=== PATIENT | male | born 1935 | race Caucasian/White ===

== ENCOUNTER 2025-06-16 16:36 | Inpatient (IN) | payer MEDICARE ==
[~2025-06-16] VITALS: Ht 177.8 cm; Wt 67.1 kg
[2025-06-16 16:49] VITALS: O2SAT 97
[2025-06-16 18:53] LABS: BASOPHILS % 0.4 % (0.0-2.0); EOSINOPHILS % 0.9 % (0.0-5.0); HEMATOCRIT. 38.9 % (42.0-52.0); HEMOGLOBIN. 13.1 g/dL (14.0-18.0); LYMPHOCYTES % 23.2 % (20.0-50.0); MEAN PLATELET VOLUME 8.5 fl (7.4-10.4); MONOCYTES % 6.8 % (2.0-8.0); NEUTROPHILS % 68.7 % (40.0-76.0); PLATELET 162 x1000/uL (130-400); RED BLOOD CELL COUNT 3.79 mill/uL (4.7-6.1); RED CELL DISTRIBUTION WIDTH 15.2 % (11.6-14.6)
[2025-06-16 19:05] LABS: CREATININE 0.8 mg/dL (0.6-1.3); UREA NITROGEN BLOOD 9 mg/dL (9-23)
[2025-06-16] MEDS: ONDANSETRON HCL 4MG/2ML INJ IV ONE (19:05)
[2025-06-16] MEDS: ACETAMINOPHEN 1000MG/100ML 100 ML IV ONE (19:05)
[2025-06-16 19:07] LABS: ASPARTATE AMINOTRANSFERASE 23 IU/L (<34); BILIRUBIN DIRECT 0.4 mg/dL (<=3.0); BILIRUBIN TOTAL 1.1 mg/dL (0.1-1.0)
[2025-06-16 19:08] LABS: PROTEIN TOTAL 6.3 g/dL (6.0-8.3); TROPONIN I HIGH SENSITIVITY 1262 ng/L (3.0-53)
[2025-06-16 20:03] LABS: INR 1.3
[2025-06-16] MEDS: ASPIRIN 325MG TABLET PO ONE (20:15)
[2025-06-16] MEDS: ASPIRIN 81MG TABLET PO ONE (20:38)
[2025-06-16 21:18] LABS: TROPONIN I HIGH SENSITIVITY 3906 ng/L (3.0-53)
[2025-06-16 21:35] VITALS: BP 121/80; PULSE 81; RESP 22; TEMP 36.4; O2SAT 95
[2025-06-16 21:40] VITALS: BP 121/80; PULSE 81; RESP 22; TEMP 36.418
[2025-06-16] MEDS ORDERED: DILTIAZEM HCL 5MG/ML 5ML VIAL IV NR (22:45)
[2025-06-16] MEDS ORDERED: ACETAMINOPHEN 325MG TABLET PO PRN ×2 (23:30)
[2025-06-16] MEDS ORDERED: IPRATROPIUM/ALBUTEROL 0.5-3(2.5)MG/3ML NEB HHN PRN (23:30)
[2025-06-16] MEDS ORDERED: CLONIDINE 0.1MG TABLET PO PRN (23:30)
[2025-06-16] MEDS ORDERED: GUAIFENESIN 200MG/10ML SUGAR FREE UDC PO PRN (23:30)
[2025-06-16] MEDS ORDERED: DOCUSATE SODIUM 100MG CAPSULE PO PRN (23:30)
[2025-06-17] MEDS ORDERED: NITROGLYCERIN 0.4MG TABLET SL SL PRN
[2025-06-17 00:01] VITALS: BP 140/95; PULSE 85; RESP 20; TEMP 37; O2SAT 94
[2025-06-17] MEDS ORDERED: METF-907 PO (00:28)
[2025-06-17] MEDS ORDERED: EZETIMIBE PO (00:28)
[2025-06-17] MEDS ORDERED: APIX2.5T PO (00:28)
[2025-06-17] MEDS ORDERED: TAMSULOSIN PO (00:28)
[2025-06-17] MEDS ORDERED: NIAC-9 PO (00:28)
[2025-06-17] MEDS: ENOXAPARIN 80MG/0.8ML SYR SUBCUT SCH (00:35)
[2025-06-17] MEDS ORDERED: DEXTROSE 50% WATER 50ML SYRINGE IV PRN (00:45)
[2025-06-17 04:00] VITALS: BP 97/62; PULSE 69; RESP 15; TEMP 37.1; O2SAT 92
[2025-06-17] MEDS: BLOOD SUGAR DIAGNOSTIC STRIP TEST SCH (06:47)
[2025-06-17] MEDS: INSULIN LISPRO 100 UNITS/ML SUBCUT SCH (07:20)
[2025-06-17 08:00] VITALS: BP 127/84; PULSE 71; RESP 16; TEMP 36.3; O2SAT 92
[2025-06-17 08:42] LABS: *AMPHETAMINES SCREEN URINE NEGATIVE (NEGATIVE); *BARBITURATES SCREEN URINE NEGATIVE (NEGATIVE); *BENZODIAZEPINES SCREEN URINE NEGATIVE (NEGATIVE); *COCAINE SCREEN URINE NEGATIVE (NEGATIVE); CANNABINOID URINE SCREEN NEGATIVE (NEGATIVE); ECSTASY MDMA SCREEN URINE NEGATIVE (NEGATIVE); METHADONE URINE SCREEN NEGATIVE (NEGATIVE); OPIATES URINE SCREEN NEGATIVE (NEGATIVE); PHENCYCLIDINE URINE SCREEN NEGATIVE (NEGATIVE)
[2025-06-17 08:59] LABS: BASOPHILS % 0.6 % (0.0-2.0); EOSINOPHILS % 2.2 % (0.0-5.0); HEMATOCRIT. 37.1 % (42.0-52.0); HEMOGLOBIN. 12.2 g/dL (14.0-18.0); LYMPHOCYTES % 25.0 % (20.0-50.0); MEAN PLATELET VOLUME 8.6 fl (7.4-10.4); MONOCYTES % 7.7 % (2.0-8.0); NEUTROPHILS % 64.5 % (40.0-76.0); PLATELET 155 x1000/uL (130-400); RED BLOOD CELL COUNT 3.57 mill/uL (4.7-6.1); RED CELL DISTRIBUTION WIDTH 14.9 % (11.6-14.6)
[2025-06-17] MEDS ORDERED: HEPARIN 5000 UNITS/ML VIAL SUBCUT SCH (09:00)
[2025-06-17 09:10] LABS: CREATINE KINASE MB FRACTION 26.6 ng/mL (0.5-3.6)
[2025-06-17 09:11] LABS: CREATININE 0.9 mg/dL (0.6-1.3); TRIGLYCERIDE 39 mg/dL (0-150)
[2025-06-17 09:12] LABS: LDL CHOLESTEROL 59 mg/dL (5-100); UREA NITROGEN BLOOD 11 mg/dL (9-23)
[2025-06-17 09:17] LABS: TROPONIN I HIGH SENSITIVITY 6169.0 ng/L (3.0-53)
[2025-06-17] MEDS: PANTOPRAZOLE SODIUM 40 MG/VIAL IV SCH (09:33)
[2025-06-17 09:49] LABS: HEPATITIS C AB NON REACTIVE (Neg) (Negative)
[2025-06-17] MEDS: TAMSULOSIN HCL 0.4MG SR CAPSULE PO SCH (10:01)
[2025-06-17] MEDS: ASPIRIN 81MG EC TABLET PO SCH (10:01)
[2025-06-17 12:00] VITALS: BP 116/80; PULSE 75; RESP 24; TEMP 36.5; O2SAT 95
[2025-06-17 16:00] VITALS: BP 114/84; PULSE 78; RESP 14; TEMP 36.7; O2SAT 98
[2025-06-17 20:00] VITALS: BP 119/82; PULSE 79; RESP 19; TEMP 36.7; O2SAT 98
[2025-06-17] MEDS: ATORVASTATIN CALCIUM 40MG TABLET PO SCH (20:44)
[2025-06-17 22:31] LABS: CREATINE KINASE MB FRACTION 18.0 ng/mL (0.5-3.6)
[2025-06-17 22:32] LABS: CREATININE 0.9 mg/dL (0.6-1.3); TRIGLYCERIDE 51 mg/dL (0-150); UREA NITROGEN BLOOD 13 mg/dL (9-23)
[2025-06-17 22:33] LABS: LDL CHOLESTEROL 56 mg/dL (5-100)
[2025-06-17 22:37] LABS: T4 FREE 1.11 ng/dL (0.89-1.76)
[2025-06-17 22:39] LABS: TROPONIN I HIGH SENSITIVITY 3627 ng/L (3.0-53)
[2025-06-18] VITALS: BP 128/81; PULSE 72; RESP 20; TEMP 36.6; O2SAT 95
[2025-06-18 04:00] VITALS: BP 133/90; PULSE 97; RESP 20; TEMP 36.2; O2SAT 97
[2025-06-18] MEDS ORDERED: FURO-151 PO (05:16)
[2025-06-18 07:01] LABS: CREATINE KINASE MB FRACTION 11.9 ng/mL (0.5-3.6)
[2025-06-18 08:00] VITALS: BP 124/73; PULSE 87; RESP 25; TEMP 36.8; O2SAT 95
[2025-06-18 09:39] LABS: CREATININE 0.9 mg/dL (0.6-1.3)
[2025-06-18 09:40] LABS: UREA NITROGEN BLOOD 11 mg/dL (9-23)
[2025-06-18 12:00] VITALS: BP 125/60; PULSE 79; RESP 17; TEMP 36.8; O2SAT 99
[2025-06-18 13:40] LABS: PLATELET 149 x1000/uL (130-400); RED BLOOD CELL COUNT 3.43 mill/uL (4.7-6.1); RED CELL DISTRIBUTION WIDTH 15.8 % (11.6-14.6)
[2025-06-18] MEDS: FUROSEMIDE 40MG/4ML VIAL IVP SCH (14:38)
[2025-06-18] MEDS: MAGNESIUM/ALUMINUM HYDROXIDE/SIMETHICONE 30ML UDC PO PRN (15:21)
[2025-06-18] MEDS: NA PHOS,M-B/NA PHOS,DI-BA ENEMA 118ML PR PRN (15:42)
[2025-06-18 16:00] VITALS: BP 112/61; PULSE 79; RESP 19; TEMP 36.4; O2SAT 96
[2025-06-18 20:00] VITALS: BP 125/75; PULSE 65; RESP 17; TEMP 36.6; O2SAT 98
[2025-06-18 22:18] LABS: CREATINE KINASE MB FRACTION 8.8 ng/mL (0.5-3.6)
[2025-06-19] VITALS: BP 115/89; PULSE 84; RESP 20; TEMP 36.6; O2SAT 92
[2025-06-19 04:00] VITALS: BP 126/98; PULSE 81; RESP 25; TEMP 36.6; O2SAT 94
[2025-06-19 08:00] VITALS: BP 142/89; PULSE 75; RESP 20; TEMP 36.7; O2SAT 99
[2025-06-19 12:00] VITALS: BP 121/74; PULSE 76; RESP 23; TEMP 36.9; O2SAT 99
[2025-06-19 16:00] VITALS: BP 94/50; PULSE 84; RESP 1; TEMP 36.8; O2SAT 97
[2025-06-19 20:00] VITALS: BP 113/63; PULSE 77; RESP 26; TEMP 36.6; O2SAT 98
[2025-06-20] VITALS (8 sets, daily range): BP systolic 102–131; BP diastolic 55–92; PULSE 65–91; RESP 16–23; TEMP 36.2–36.8; O2SAT 96–98
[2025-06-20 06:59] LABS: PLATELET 142 x1000/uL (130-400); RED BLOOD CELL COUNT 3.51 mill/uL (4.7-6.1); RED CELL DISTRIBUTION WIDTH 14.8 % (11.6-14.6)
[2025-06-20 07:03] LABS: CREATININE 0.7 mg/dL (0.6-1.3); UREA NITROGEN BLOOD 11 mg/dL (9-23)
[2025-06-20] MEDS ORDERED: HEPARIN 1000 UNITS/ML 10ML ONE ×2 (10:01→11:36)
[2025-06-20] MEDS ORDERED: LIDOCAINE HCL 1% 20ML VIAL ONE (10:01)
[2025-06-20] MEDS ORDERED: VERAPAMIL HCL 2.5 MG/1 ML 2ML VIAL IV ONE (10:01)
[2025-06-20] MEDS ORDERED: IODIXANOL 320MG/ML 100 ML BOTTLE IV ONE ×2 (10:01→11:43)
[2025-06-20] MEDS ORDERED: FENTANYL CITRATE/PF 50MCG/ML 2ML VIAL ONE (10:18)
[2025-06-20] MEDS ORDERED: MIDAZOLAM HCL 2 MG/2 ML VIAL ONE (10:19)
[2025-06-20] MEDS ORDERED: ATROPINE SULFATE 1MG/10ML SYR IV PRN (12:30)
[2025-06-20] MEDS: SODIUM CHLORIDE 0.45% 1,000 ML IV SCH (13:38)
[2025-06-20] MEDS: ENOXAPARIN 60MG/0.6ML SYR SUBCUT SCH (22:33)
[2025-06-21] VITALS (15 sets, daily range): BP systolic 90–141; BP diastolic 46–98; PULSE 73–86; RESP 13–32; TEMP 36.4–37.2; O2SAT 87–100
[2025-06-21 06:23] LABS: BASOPHILS % 0.4 % (0.0-2.0); EOSINOPHILS % 0.3 % (0.0-5.0); HEMATOCRIT. 36.1 % (42.0-52.0); HEMOGLOBIN. 12.1 g/dL (14.0-18.0); LYMPHOCYTES % 15.4 % (20.0-50.0); MEAN PLATELET VOLUME 8.3 fl (7.4-10.4); MONOCYTES % 8.2 % (2.0-8.0); NEUTROPHILS % 75.7 % (40.0-76.0); PLATELET 141 x1000/uL (130-400); RED BLOOD CELL COUNT 3.51 mill/uL (4.7-6.1); RED CELL DISTRIBUTION WIDTH 14.9 % (11.6-14.6)
[2025-06-21 06:40] LABS: CREATININE 0.7 mg/dL (0.6-1.3); UREA NITROGEN BLOOD 10 mg/dL (9-23)
[2025-06-21] MEDS ORDERED: IODIXANOL 320 MG/ML 150ML BOTTLE IV ONE (11:00)
[2025-06-21] MEDS ORDERED: LIDOCAINE HCL 1% 20ML VIAL ONE ×2 (11:00→12:40)
[2025-06-21] MEDS ORDERED: HEPARIN 1000 UNITS/ML 10ML ONE ×2 (11:01→13:54)
[2025-06-21] MEDS ORDERED: VERAPAMIL HCL 2.5 MG/1 ML 2ML VIAL IV ONE ×2 (11:01→12:40)
[2025-06-21] MEDS ORDERED: MIDAZOLAM HCL 2 MG/2 ML VIAL ONE (12:42)
[2025-06-21] MEDS ORDERED: FENTANYL CITRATE/PF 50MCG/ML 2ML VIAL ONE (12:42)
[2025-06-21] MEDS ORDERED: CLOPIDOGREL 75MG TABLET ONE (12:42)
[2025-06-21] MEDS ORDERED: IODIXANOL 320MG/ML 100 ML BOTTLE IV ONE (13:31)
[2025-06-21] MEDS ORDERED: ASPIRIN 81MG TABLET ONE (14:12)
[2025-06-21] MEDS: SODIUM CHLORIDE 0.45% 1,000 ML IV SCH (15:30)
[2025-06-21] MEDS: ONDANSETRON HCL 4MG/2ML INJ IV PRN (16:16)
[2025-06-21] MEDS: ASPIRIN 81MG EC TABLET PO SCH (17:02)
[2025-06-21] MEDS ORDERED: IPRATROPIUM/ALBUTEROL 0.5-3(2.5)MG/3ML NEB HHN PRN (18:30)
[2025-06-22] VITALS (15 sets, daily range): BP systolic 86–127; BP diastolic 57–90; PULSE 71–93; RESP 15–33; TEMP 36.3–36.9; O2SAT 93–99
[2025-06-22 08:01] LABS: BASOPHILS % 0.3 % (0.0-2.0); EOSINOPHILS % 0.1 % (0.0-5.0); HEMATOCRIT. 39.5 % (42.0-52.0); HEMOGLOBIN. 13.0 g/dL (14.0-18.0); LYMPHOCYTES % 15.1 % (20.0-50.0); MEAN PLATELET VOLUME 9.2 fl (7.4-10.4); MONOCYTES % 8.6 % (2.0-8.0); NEUTROPHILS % 75.9 % (40.0-76.0); PLATELET 147 x1000/uL (130-400); RED BLOOD CELL COUNT 3.72 mill/uL (4.7-6.1); RED CELL DISTRIBUTION WIDTH 15.3 % (11.6-14.6)
[2025-06-22 08:22] LABS: CREATININE 0.7 mg/dL (0.6-1.3); UREA NITROGEN BLOOD 13 mg/dL (9-23)
[2025-06-22] MEDS: CLOPIDOGREL 75MG TABLET PO SCH (09:17)
[2025-06-22] MEDS: FUROSEMIDE 40MG/4ML VIAL ONE (11:31)
[2025-06-22] MEDS: FUROSEMIDE 40MG/4ML VIAL IVP NR (11:39)
[2025-06-22] MEDS ORDERED: APIX2.5T MT (12:47)
[2025-06-22] MEDS ORDERED: CLOP75TA33 MT (12:47)
[2025-06-22] MEDS ORDERED: LIP40 MT (12:57)
[2025-06-22] MEDS ORDERED: MIDODRINE HCL 5MG TABLET PO PRN (17:45)
[2025-06-23] VITALS: BP 103/85; PULSE 84; RESP 22; TEMP 36.9; O2SAT 96
[2025-06-23 04:00] VITALS: BP 116/88; PULSE 82; RESP 23; TEMP 36.8; O2SAT 94
[2025-06-23 08:00] VITALS: BP 120/71; PULSE 87; RESP 19; TEMP 36.4; O2SAT 94
[2025-06-23 08:35] VITALS: PULSE 84
== END 2025-06-23 11:45 | disposition home health service (06) | DRG 323 ==
LOC: ER 16:36 → EDBEDREQTM 20:06 → EDBEDREQ 20:06 → ENRESERV 20:20 → 3WST 21:09
PROVIDERS: ADMIT Internal Medicine; ATTEND Internal Medicine
PROC: 02703ZZ Dilation of Coronary Artery, One Artery, Percutaneous Approach (ICD-10-PCS; 2025-06-20)
PROC: 4A023N7 Measurement of Cardiac Sampling and Pressure, Left Heart, Percutaneous Approach (ICD-10-PCS; 2025-06-20)
PROC: B211YZZ Fluoroscopy of Multiple Coronary Arteries using Other Contrast (ICD-10-PCS; 2025-06-20)
PROC: B215YZZ Fluoroscopy of Left Heart using Other Contrast (ICD-10-PCS; 2025-06-20)
PROC: B240ZZ3 Ultrasonography of Single Coronary Artery, Intravascular (ICD-10-PCS; 2025-06-20)
PROC: 027035Z Dilation of Coronary Artery, One Artery with Two Drug-eluting Intraluminal Devices, Percutaneous Approach (ICD-10-PCS; principal; 2025-06-21)
PROC: 02F03ZZ Fragmentation in Coronary Artery, One Artery, Percutaneous Approach (ICD-10-PCS; 2025-06-21)
PROC: B215YZZ Fluoroscopy of Left Heart using Other Contrast (ICD-10-PCS; 2025-06-21)
PROC: 4A023N7 Measurement of Cardiac Sampling and Pressure, Left Heart, Percutaneous Approach (ICD-10-PCS; 2025-06-21)
PROC: B211YZZ Fluoroscopy of Multiple Coronary Arteries using Other Contrast (ICD-10-PCS; 2025-06-21)
DX: T82.855A Stenosis of coronary artery stent, initial encounter (principal); I21.4 Non-ST elevation (NSTEMI) myocardial infarction; J18.9 Pneumonia, unspecified organism; J96.01 Acute respiratory failure with hypoxia; I31.39 Other pericardial effusion (noninflammatory); I42.9 Cardiomyopathy, unspecified; I50.22 Chronic systolic (congestive) heart failure; J91.8 Pleural effusion in other conditions classified elsewhere; I11.0 Hypertensive heart disease with heart failure; E11.9 Type 2 diabetes mellitus without complications; I25.10 Atherosclerotic heart disease of native coronary artery without angina pectoris; K43.9 Ventral hernia without obstruction or gangrene; K57.30 Diverticulosis of large intestine without perforation or abscess without bleeding; N40.0 Benign prostatic hyperplasia without lower urinary tract symptoms; I27.20 Pulmonary hypertension, unspecified; E78.5 Hyperlipidemia, unspecified; I08.3 Combined rheumatic disorders of mitral, aortic and tricuspid valves; M70.71 Other bursitis of hip, right hip; I48.91 Unspecified atrial fibrillation; Z79.01 Long term (current) use of anticoagulants; Z79.02 Long term (current) use of antithrombotics/antiplatelets; Z79.84 Long term (current) use of oral hypoglycemic drugs; Z79.899 Other long term (current) drug therapy; Z87.891 Personal history of nicotine dependence; Z90.49 Acquired absence of other specified parts of digestive tract; Z95.1 Presence of aortocoronary bypass graft; Y83.1 Surgical operation with implant of artificial internal device as the cause of abnormal reaction of the patient, or of later complication, without mention of misadventure at the time of the procedure; Y92.89 Other specified places as the place of occurrence of the external cause; Y93.89 Activity, other specified
CPT/HCPCS: 36415; 71045; 71275; 74176; 76604; 80048; 80061; 80076; 80305; 82550; 82553; 82962; 83036; 83880; 84439; 84443; 84484; 85025; 85027; 85347; 85379; 86705; 87340; 92928; 92978; 93005; 93306; 93454; 93460; 93970; 99291; A4606; C1753; C1769; C1874; C1887; C1893; J1644; J1650; J1815; J1938; J2003; J2250; J2405; J2470; J3010; J3490; Q9967; C1725; C1761; J0131